=== PATIENT | male | born 1995 | race Caucasian/White ===

== ENCOUNTER 2024-01-11 19:11 | Emergency (ER) | payer SELFPAY ==
[~2024-01-11] VITALS: Ht 170.2 cm; Wt 72.0 kg
[2024-01-11 19:13] VITALS: O2SAT 100
[2024-01-11] MEDS ORDERED: LEVETIRACETAM 100MG/ML ORAL SYR PO ONE (20:00)
[2024-01-11 20:15] LABS: BASOPHILS % 0.2 % (0.0-2.0); HEMATOCRIT. 43.9 % (42.0-52.0); HEMOGLOBIN. 14.8 g/dL (14.0-18.0); LYMPHOCYTES % 7.7 % (20.0-50.0); MEAN CORPUSCULAR HEMOGLOBIN 31.8 pg (28.0-32.0); MEAN CORPUSCULAR HGB CONC 33.7 g/dL (31.0-37.0); MEAN CORPUSCULAR VOLUME 94.2 fL (80.0-94.0); MEAN PLATELET VOLUME 9.1 fl (7.4-10.4); MONOCYTES % 7.9 % (2.0-8.0); NEUTROPHILS % 84.2 % (40.0-76.0); PLATELET 187 x1000/uL (130-400); RED BLOOD CELL COUNT 4.66 mill/uL (4.7-6.1); RED CELL DISTRIBUTION WIDTH 13.6 % (11.6-14.6); WHITE BLOOD COUNT 13.3 x1000/uL (4.5-11.0)
[2024-01-11 20:18] LABS: CHLORIDE 107 mEq/L (98-107); POTASSIUM 3.9 mEq/L (3.5-5.1); SODIUM 141 mEq/L (136-145)
[2024-01-11 20:19] LABS: CALCIUM 9.6 mg/dL (8.7-10.4); CARBON DIOXIDE 27 mEq/L (21-32)
[2024-01-11 20:24] LABS: CREATININE 0.8 mg/dL (0.6-1.3); GLUCOSE 96 mg/dL (70-105); UREA NITROGEN BLOOD 9 mg/dL (9-23)
[2024-01-11 20:25] LABS: ALANINE AMINOTRANSFERASE 8 IU/L (10-49); ALBUMIN 4.7 g/dL (3.2-4.8); ASPARTATE AMINOTRANSFERASE 14 IU/L (<34); VALPROIC ACID 34.2 ug/mL (50-100)
[2024-01-11 20:26] LABS: PROTEIN TOTAL 7.1 g/dL (6.0-8.3)
[2024-01-11] MEDS: LEVETIRACETAM 500MG TABLET PO NR (20:50)
[2024-01-11] MEDS: VALPROATE SODIUM 1,000 MG in DEXT 5% WATER 100 ML IV ONE (20:51)
[2024-01-11] MEDS ORDERED: LEVE750T35 MT (21:36)
[2024-01-11] MEDS ORDERED: VALP250C3 MT (21:36)
[2024-01-11] MEDS ORDERED: KETOROLAC 15MG/ML VIAL IV ONE (21:45)
[2024-01-11 22:29] VITALS: BP 99/61; PULSE 66; RESP 16; TEMP 98
== END 2024-01-11 22:33 | disposition home or self-care (01) ==
LOC: ER 19:11
DX: S02.2XXA Fracture of nasal bones, initial encounter for closed fracture (principal); S02.40CA Maxillary fracture, right side, initial encounter for closed fracture; G40.909 Epilepsy, unspecified, not intractable, without status epilepticus; X58.XXXA Exposure to other specified factors, initial encounter; Y93.89 Activity, other specified; Y92.89 Other specified places as the place of occurrence of the external cause; Y99.8 Other external cause status
CPT/HCPCS: 80053; 80165; 85025; 36415; 70450; 96365; 99285; 82542; J3490; J7060; Z7610